=== PATIENT | female | born 2000 | race Two or more races ===

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

== ENCOUNTER 2018-02-23 16:45 | Observation (INO) | payer SELFPAY ==
[~2018-02-23] VITALS: Ht 144.8 cm; Wt 71.7 kg
[2018-02-23] MEDS ORDERED: LACTATED RINGER'S 1,000 ML IV ONE (17:25)
[2018-02-23] MEDS ORDERED: NIFEdipine 10 MG CAP PO ONE (17:30)
[2018-02-23] MEDS: TERBUTALINE SULFATE 1 MG/ML 1ML VIAL SC SCH ×3 (18:07→18:39)
[2018-02-23] MEDS ORDERED: NIFE30TA76 PO (19:08)
== END 2018-02-23 19:50 | disposition home or self-care (01) | DRG 778 ==
LOC: LDRP 16:45
PROVIDERS: ADMIT Specialist; ATTEND Specialist
DX: O60.03 Preterm labor without delivery, third trimester (principal); O26.893 Other specified pregnancy related conditions, third trimester; R51 Headache; O21.2 Late vomiting of pregnancy; Z3A.31 31 weeks gestation of pregnancy
CPT/HCPCS: 59025; 81002; 96360; 96361; 96372; G0378; J3105; 96365; 96366

== ENCOUNTER 2018-03-07 09:10 | Observation (INO) | payer SELFPAY ==
[~2018-03-07 09:10] MED LIST: NIFE30TA76 PO
[2018-03-07] MEDS ORDERED: NIFEdipine 10 MG CAP PO ONE (10:30)
[2018-03-07] MEDS: TERBUTALINE SULFATE 1 MG/ML 1ML VIAL SC SCH (10:44)
[2018-03-07] MEDS ORDERED: BETAMETHASONE ACET (6MG/ML) 5ML VIAL IM ONE (11:30)
== END 2018-03-07 12:00 | disposition home or self-care (01) | DRG 778 ==
LOC: LDRP 09:10 → UNDODISOB 12:00
PROVIDERS: ADMIT Obstetrics & Gynecology; ATTEND Obstetrics & Gynecology
DX: O60.03 Preterm labor without delivery, third trimester (principal); Z3A.33 33 weeks gestation of pregnancy
CPT/HCPCS: 59025; 81002; 96372; G0378; J0702; J3105

== ENCOUNTER 2018-03-08 11:40 | Observation (INO) | payer SELFPAY ==
[2018-03-08] MEDS ORDERED: BETAMETHASONE ACET (6MG/ML) 5ML VIAL IM ONE (12:15)
== END 2018-03-08 13:45 | disposition home or self-care (01) | DRG 778 ==
LOC: LDRP 11:40
PROVIDERS: ADMIT Obstetrics & Gynecology; ATTEND Obstetrics & Gynecology
DX: O60.03 Preterm labor without delivery, third trimester (principal); Z3A.33 33 weeks gestation of pregnancy
CPT/HCPCS: 59025; 76815; 81002; 96372; G0378

== ENCOUNTER 2018-03-16 09:55 | Observation (INO) | payer SELFPAY ==
[2018-03-16] MEDS ORDERED: PREN-96 PO (10:35)
== END 2018-03-16 10:55 | disposition home or self-care (01) | DRG 778 ==
LOC: LDRP 09:55
PROVIDERS: ADMIT Specialist; ATTEND Specialist
DX: O60.03 Preterm labor without delivery, third trimester (principal); O62.9 Abnormality of forces of labor, unspecified; Z3A.34 34 weeks gestation of pregnancy
CPT/HCPCS: 59025; 81002; G0378

== ENCOUNTER 2018-04-18 08:55 | Observation (INO) | payer MEDICAID ==
[~2018-04-18 08:55] MED LIST changes: -NIFE30TA76 PO; +PREN-96 PO
== END 2018-04-18 11:15 | disposition home or self-care (01) | DRG 566 ==
LOC: LDRP 08:55
PROVIDERS: ADMIT Obstetrics & Gynecology; ATTEND Obstetrics & Gynecology
DX: O26.893 Other specified pregnancy related conditions, third trimester (principal); Z3A.39 39 weeks gestation of pregnancy
CPT/HCPCS: 59025; 76805; 81002; G0378

== ENCOUNTER 2018-04-19 15:10 | Observation (INO) | payer MEDICAID | END 2018-04-19 16:10 | disposition home or self-care (01) | DRG 566 | LOC: LDRP 15:10 | PROVIDERS: ADMIT Specialist; ATTEND Specialist | DX: O26.853 Spotting complicating pregnancy, third trimester (principal); Z3A.39 39 weeks gestation of pregnancy | CPT/HCPCS: 59025; 81002; G0378 ==

== ENCOUNTER 2018-04-20 05:41 | Observation (INO) | payer MEDICAID | END 2018-04-20 06:55 | disposition home or self-care (01) | DRG 566 | LOC: LDRP 05:41 | PROVIDERS: ADMIT Obstetrics & Gynecology; ATTEND Obstetrics & Gynecology | DX: O62.9 Abnormality of forces of labor, unspecified (principal); O26.893 Other specified pregnancy related conditions, third trimester; R10.9 Unspecified abdominal pain; M79.605 Pain in left leg; O99.89 Other specified diseases and conditions complicating pregnancy, childbirth and the puerperium; M54.9 Dorsalgia, unspecified; Z3A.39 39 weeks gestation of pregnancy | CPT/HCPCS: 59025; 81002; G0378 ==

== ENCOUNTER 2018-04-21 09:35 | Inpatient (IN) | payer MEDICAID ==
[~2018-04-21] VITALS: Ht 157.5 cm; Wt 79.4 kg
[2018-04-21] MEDS ORDERED: LACTATED RINGER'S 1,000 ML IV SCH ×3 (12:57→15:55)
[2018-04-21] MEDS ORDERED: LACT. RINGERS/OXYTOCIN 20UNITS 1,000 ML IV SCH ×2 (12:57→15:55)
[2018-04-21] MEDS ORDERED: LIDOCAINE 2% (LOCAL ANESTH.) PF 5ml SDV ID ONE (13:00)
[2018-04-21] MEDS ORDERED: DERMOPLAST 60ML BOTTLE TOP PRN (13:00)
[2018-04-21] MEDS ORDERED: PHISODERM TOP SOLN 240ML BTL TOP PRN (13:00)
[2018-04-21] MEDS ORDERED: METHYLERGONOVINE MALEATE 0.2 MG/ML AMP IM PRN (13:00)
[2018-04-21] MEDS ORDERED: NALBUPHINE HCL 10 MG/1ml INJECTION IV PRN (13:00)
[2018-04-21] MEDS ORDERED: WITCH HAZEL-GLYCERIN PAD TOP PRN (13:00)
[2018-04-21 13:41] LABS: Urine Bacteria FEW /hpf (None Seen); Urine Blood 2+ /uL (Negative); Urine Mucus FEW (None Seen); Urine Specific Gravity 1.012 (1.001-1.035); Urine WBC 28 /hpf (0 - 5)
[2018-04-21] MEDS ORDERED: PENICILLIN G POT 5MIL/D5 50ML 50 ML IV ONE ×2 (14:08→14:30)
[2018-04-21 14:21] LABS: Basophils # (auto) 0.1 uL; Basophils % (auto) 0.5 % (0.0-2.0); Eosinophils # (auto) 0 uL; Eosinophils % (auto) 0.4 % (0.0-7.0); Hematocrit 37.1 % (36.0-46.0); Hemoglobin 12.3 g/dL (12.2-16.2); Lymphocytes # (auto) 1.9 uL; Lymphocytes % (auto) 17.3 % (10.0-50.0); Mean Corpuscular Hemoglobin 30.8 pg (28.0-32.0); Mean Corpuscular Hgb Conc. 33.2 g/dL (32.0-36.0); Mean Corpuscular Volume 92.9 fL (80.0-100.0); Monocytes # (auto) 0.7 uL; Monocytes % (auto) 5.9 % (0.0-12.0); Neutrophils # (auto) 8.4 uL; Neutrophils % (auto) 75.9 % (37.0-80.0); Platelet Count (auto) 369 10^3/uL (140-450)
[2018-04-21 14:30] LABS: INR 0.87 (0.9-1.15); Partial Thromboplastin Time 24.3 sec (23.78-33.04); Prothrombin Time 9.4 sec (9.27-12.13)
[2018-04-21 14:45] LABS: Albumin 2.7 g/dL (3.4-5.0); BUN/Creatinine Ratio 8.5; Bilirubin, Total 0.3 mg/dL (0.2-1.0); Calcium 8.6 mg/dL (8.5-10.1); Potassium 4.1 mmol/L (3.5-5.1); Total Protein 7.4 g/dL (6.4-8.2)
[2018-04-21] MEDS ORDERED: TERBUTALINE SULFATE 1 MG/ML 1ML VIAL SC ONE (16:00)
[2018-04-21] MEDS: PENICILLIN G POTASSIUM 2,500,000 UNITS in D5W 5% 50 ML IV SCH ×2 (19:00→23:35)
[2018-04-21] MEDS ORDERED: ePHEDrine SULFATE 50 MG/ML AMP IV ONE ×2 (21:15→22:30)
[2018-04-21] MEDS ORDERED: fentaNYL W ROPIVACAINE 150 ML EPI SCH ×2 (21:15→22:30)
[2018-04-21] MEDS ORDERED: NALOXONE HCL 0.4 MG/ML VIAL IV ONE ×2 (21:15→22:30)
[2018-04-21] MEDS ORDERED: ePHEDrine SULFATE 50 MG/ML AMP ONE (21:28)
[2018-04-21] MEDS ORDERED: NALOXONE HCL 0.4 MG/ML VIAL ONE (21:28)
[2018-04-21] MEDS ORDERED: fentaNYL W ROPIVACAINE 150 ML EPI ONE (21:28)
[2018-04-21] MEDS ORDERED: LIDOCAINE 2% (LOCAL ANESTH.) PF 5ml SDV ONE (22:15)
[2018-04-21] MEDS ORDERED: fentaNYL CITRATE 100 MCG/2 ML VL ONE (22:15)
[2018-04-21] MEDS ORDERED: fentaNYL CITRATE 100 MCG/2 ML VL IV ONE (22:30)
[2018-04-21] MEDS ORDERED: SODIUM CHLORIDE 0.9% 500 ML IV PRN (22:30)
[2018-04-22] MEDS ORDERED: LACT. RINGERS/OXYTOCIN 20UNITS 500 ML IV ONE (02:07)
[2018-04-22 03:06] LABS: RPR Non Reactive (Non Reactive)
[2018-04-22] MEDS: IBUPROFEN 600 MG TAB PO PRN ×3 (03:38→11:01)
[2018-04-22 07:02] VITALS: BP 108/52
[2018-04-22] MEDS ORDERED: TETANUS-DIPTH-ACEL PERTUSSIS 0.5ML SYRG IM ONE (10:00)
[2018-04-22 11:00] VITALS: BP 115/70
[2018-04-22 11:44] VITALS: BP 115/70
[2018-04-22 15:00] VITALS: BP 99/51
[2018-04-22] MEDS: HYDROcodone-ACET 5/325MG TAB PO PRN ×2 (15:26→22:06)
[2018-04-22 19:00] VITALS: BP 99/51
[2018-04-22 22:35] VITALS: BP 99/59
[2018-04-23 03:27] VITALS: BP 94/53
[2018-04-23 06:30] VITALS: BP 97/55
[2018-04-23] MEDS: IBUPROFEN 600 MG TAB PO PRN (07:34)
== END 2018-04-23 10:55 | disposition home or self-care (01) | DRG 560 ==
LOC: LDRP 09:35 → OBSVTOIN 09:35 → LDRP 11:34
PROVIDERS: ADMIT Specialist; ATTEND Specialist
PROC: 10E0XZZ Delivery of Products of Conception, External Approach (ICD-10-PCS; principal; 2018-04-22)
PROC: 3E0R3BZ Introduction of Anesthetic Agent into Spinal Canal, Percutaneous Approach (ICD-10-PCS; 2018-04-22)
PROC: 00HU33Z Insertion of Infusion Device into Spinal Canal, Percutaneous Approach (ICD-10-PCS; 2018-04-22)
PROC: 10907ZC Drainage of Amniotic Fluid, Therapeutic from Products of Conception, Via Natural or Artificial Opening (ICD-10-PCS; 2018-04-22)
DX: O76 Abnormality in fetal heart rate and rhythm complicating labor and delivery (principal); Z37.0 Single live birth; Z3A.39 39 weeks gestation of pregnancy
CPT/HCPCS: 36415; 51702; 59025; 59409; 62282; 71045; 76818; 80053; 81001; 85025; 85610; 85730; 86592; 86850; 86900; 86901; 90472; 90715; 93005; 94762; 96365; 96366; 96372; 96374; 96375; A6257; J2001; J2540; J2590; J3010; J7060

== ENCOUNTER 2020-02-13 11:19 | Observation (INO) | payer MEDICAID | END 2020-02-13 12:50 | disposition home or self-care (01) | DRG 566 | LOC: LDRP 11:19 | PROVIDERS: ADMIT Specialist; ATTEND Specialist | DX: O42.92 Full-term premature rupture of membranes, unspecified as to length of time between rupture and onset of labor (principal); R10.9 Unspecified abdominal pain; Z3A.37 37 weeks gestation of pregnancy | CPT/HCPCS: 59025; 81002; 84112; G0378; Q0114 ==

== ENCOUNTER 2020-02-22 09:35 | Observation (INO) | payer MEDICAID | END 2020-02-22 10:50 | disposition home or self-care (01) | DRG 566 | LOC: LDRP 09:35 | PROVIDERS: ADMIT Specialist; ATTEND Specialist | DX: O26.893 Other specified pregnancy related conditions, third trimester (principal); R10.31 Right lower quadrant pain; Z3A.38 38 weeks gestation of pregnancy | CPT/HCPCS: 59025; 81002; G0378 ==

== ENCOUNTER 2020-02-25 17:54 | Observation (INO) | payer MEDICAID ==
[~2020-02-25] VITALS: Ht 160 cm; Wt 87.5 kg
== END 2020-02-25 20:28 | disposition home or self-care (01) | DRG 566 ==
LOC: LDRP 17:54
PROVIDERS: ADMIT Obstetrics & Gynecology; ATTEND Obstetrics & Gynecology
DX: O46.93 Antepartum hemorrhage, unspecified, third trimester (principal); O62.9 Abnormality of forces of labor, unspecified; Z3A.39 39 weeks gestation of pregnancy
CPT/HCPCS: 59025; 76818; 81002; G0378

== ENCOUNTER 2020-02-26 00:12 | Inpatient (IN) | payer MEDICAID ==
[~2020-02-26] VITALS: Ht 149.9 cm; Wt 87.5 kg
[2020-02-26] MEDS ORDERED: BUTORPHANOL TARTRATE 2 MG/1 ML VIAL IM ONE (00:45)
[2020-02-26] MEDS ORDERED: PROMETHAZINE HCL 6.25 MG/5 ML ORAL SYRUP PO PRN (00:45)
[2020-02-26] MEDS ORDERED: LACT. RINGERS/OXYTOCIN 20UNITS 1,000 ML IV SCH ×2 (03:49→16:40)
[2020-02-26] MEDS ORDERED: LIDOCAINE 2%HCL (LOCAL ANESTH.) INJ 20ML MDV ID ONE (04:00)
[2020-02-26] MEDS ORDERED: PHISODERM TOP SOLN 240ML BTL TOP PRN (04:00)
[2020-02-26] MEDS ORDERED: DERMOPLAST 60ML BOTTLE TOP PRN (04:00)
[2020-02-26] MEDS ORDERED: CARBOPROST TROMETHAMINE 250 MCG/1ML VIAL IM PRN (04:00)
[2020-02-26] MEDS ORDERED: PENICILLIN G POT 5MIL/D5 50ML 50 ML IV ONE (04:00)
[2020-02-26] MEDS ORDERED: METHYLERGONOVINE MALEATE 0.2 MG/ML AMP IM PRN (04:00)
[2020-02-26] MEDS ORDERED: WITCH HAZEL-GLYCERIN PAD TOP PRN (04:00)
[2020-02-26 04:35] LABS: Basophils # (auto) 0 10 ^3/uL (0-0.2); Basophils % (auto) 0.3 % (0.0-2.0); Eosinophils # (auto) 0 10 ^3/uL (0-0.8); Eosinophils % (auto) 0.1 % (0.0-7.0); Hematocrit 38.1 % (36.0-46.0); Hemoglobin 12.6 g/dL (12.2-16.2); Lymphocytes # (auto) 1.3 10 ^3/uL (0.4-5.4); Lymphocytes % (auto) 13.3 % (10.0-50.0); Mean Corpuscular Hemoglobin 30.9 pg (28.0-32.0); Mean Corpuscular Hgb Conc. 33.1 g/dL (32.0-36.0); Mean Corpuscular Volume 93.2 fL (80.0-100.0); Monocytes # (auto) 0.4 10 ^3/uL (0-1.3); Monocytes % (auto) 4.5 % (0.0-12.0); Neutrophils # (auto) 7.8 10 ^3/uL (1.6-8.6); Neutrophils % (auto) 81.8 % (37.0-80.0); Nucleated Red Blood Cells % 0.1 %; Platelet Count (auto) 358 10^3/uL (140-450); Red Blood Cells 4.09 10^6/uL (4.0-5.20); Red Cell Distribution Width 15.2 % (11.8-14.3); White Blood Cell 9.5 10^3/uL (4.4-10.8)
[2020-02-26 04:50] LABS: INR 0.92 (0.9-1.15); Partial Thromboplastin Time 24.7 sec (23.64-32.05)
[2020-02-26 04:53] LABS: Calcium 9.2 mg/dL (8.5-10.1)
[2020-02-26 04:56] LABS: BUN/Creatinine Ratio 13.3; Bilirubin, Total 0.2 mg/dL (0.2-1.0); Total Protein 7.8 g/dL (6.4-8.2)
[2020-02-26] MEDS: LACTATED RINGER'S 1,000 ML IV SCH ×2 (05:00→06:43)
[2020-02-26] MEDS ORDERED: BUTORPHANOL TARTRATE 2 MG/1 ML VIAL IV PRN (05:00)
[2020-02-26] MEDS ORDERED: ePHEDrine SULFATE 50 MG/ML AMP IV ONE (05:15)
[2020-02-26] MEDS ORDERED: fentaNYL 200mCg/100ml W ROPIVA 100 ML EPI SCH (05:15)
[2020-02-26] MEDS ORDERED: PROMETHAZINE HCL 25 MG/ML 1ML IM PRN (06:15)
[2020-02-26] MEDS ORDERED: PROMETHAZINE HCL 25 MG/ML 1ML ONE (06:21)
[2020-02-26] MEDS: PROMETHAZINE HCL 25 MG/ML 1ML IV PRN ×2 (06:26→10:36)
[2020-02-26 07:31] LABS: Urine Bacteria NONE SEEN /hpf (None Seen); Urine Blood 1+ /uL (Negative); Urine Mucus FEW (None Seen); Urine Specific Gravity 1.037 (1.001-1.035); Urine WBC 3 /hpf (0 - 5)
[2020-02-26 07:46] LABS: Alcohol, Urine < 3.0 mg/dL (0-10); Amphetamine Screen, Urine NEGATIVE (NEGATIVE); Barbiturate Scree,Urine NEGATIVE (NEGATIVE); Benzodiazephine Screen, Urine NEGATIVE (NEGATIVE); Cannabinoid Screen, Urine NEGATIVE (NEGATIVE); Cocaine Screen, Urine NEGATIVE (NEGATIVE); Opiate Scree,Urine NEGATIVE (NEGATIVE); Phencyclidine Screen, Urine NEGATIVE (NEGATIVE)
[2020-02-26] MEDS ORDERED: PENICILLIN G POTASSIUM 2,500,000 UNITS in D5W 5% 50 ML IV SCH (08:00)
[2020-02-26] MEDS: PENICILLIN G POTASSIUM 2,500,000 UNITS in D5W 5% 50 ML IV SCH ×2 (09:07→12:45)
--- NOTE | 2020-02-26 15:25 | NUR ---
Teaching: Reviewed information in [facility] booklet with patient. Discussed benefits of and risks associated with not . Discussed different positions, proper latch, feeding cues, and baby-led . Provided information of medication side effects related to . All questions and concerns addressed at this time. Patient verbalized understanding of information.
[2020-02-26] MEDS ORDERED: LACT. RINGERS/OXYTOCIN 20UNITS 500 ML IV ONE (15:40)
[2020-02-26] MEDS ORDERED: ONDANSETRON HCL 4 MG/2 ML VIAL IV PRN (15:45)
[2020-02-26] MEDS ORDERED: ACETAMINOPHEN 325 MG TAB PO PRN (15:45)
[2020-02-26] MEDS: IBUPROFEN 600 MG TAB PO PRN (16:10)
--- NOTE | 2020-02-26 17:10 | NUR ---
Ambulation: Patient OOB with standby assistance by RN. Patient ambulated to bathroom with steady gait. Patient able to void without difficulty. [facility] teaching provided with returned demonstration by patient. Clean gown provided and bed linen changed. Patient ambulated back to bed with steady gait and no distress noted.
[2020-02-26] MEDS ORDERED: HYDROcodone-ACET 10/325MG TAB PO ONE (17:45)
--- NOTE | 2020-02-26 17:45 | NUR ---
Call placed to [facility] given including pt c/o COATS; VS reviewed; order received to [place] 10/325 x 1 dose; order will be carried out.
[2020-02-26 18:30] VITALS: BP 124/72
[2020-02-26] MEDS ORDERED: TETANUS-DIPTH-ACEL PERTUSSIS 0.5ML SYR Tdap IM ONE (20:54)
[2020-02-26 22:51] VITALS: BP 102/67
[2020-02-27] MEDS: IBUPROFEN 600 MG TAB PO PRN ×3 (00:54→15:28)
[2020-02-27 02:58] VITALS: BP 98/53
[2020-02-27 06:29] VITALS: BP 112/68
[2020-02-27 07:01] VITALS: BP 112/68
--- NOTE | 2020-02-27 07:09 | NUR ---
Patient states IV is causing pain, flushed without difficulty. Patient request to have IV removed per policy. Cath intact, patient tolerated well and pressure dressing placed to site. Signed: 02/27/20 at 711 by SOLOMON HAMLIN <Co-Signature Required> Co-Signed: 02/27/20 at 711 by DEANNE VALDEZ RN Addendum: 02/27/20 at 713 by SOLOMON HAMLIN Amended: Links added.
[2020-02-27 07:10] LABS: RPR Non Reactive (Non Reactive)
[2020-02-27] MEDS ORDERED: TETANUS-DIPTH-ACEL PERTUSSIS 0.5ML SYR Tdap IM ONE (08:30)
[2020-02-27] MEDS ORDERED: MEASLES, MUMPS & RUBELLA VAC(MMRII) 0.5ML SC ONE (08:30)
--- NOTE | 2020-02-27 09:30 | NUR ---
Artificial Nipple Education: Encouraged mother to refrain from using artificial nipples which include a pacifier. Discussed the risk of artificial nipple use and its effect on effective . Mother verbalized understanding of information and agreed to refrain from using artificial nipples. Educated mother on feeding cues and proper latching of onto the nipple. Signed: 02/27/20 at 1223 by SOLOMON HAMLIN <Co-Signature Required> Co-Signed: 02/27/20 at 1223 by DEANNE VALDEZ RN
[2020-02-27] MEDS ORDERED: DOCUSATE CALCIUM 240 MG CAP PO SCH (10:00)
[2020-02-27 10:56] VITALS: BP 105/65
[2020-02-27 15:20] VITALS: BP 102/70
--- NOTE | 2020-02-27 17:00 | NUR ---
Discharge: Discharge instructions given as ordered. All discharge paperwork reviewed with patient and significant other. Pt encouraged to follow up with Dr Hilario at [facility]. Call for appointment tomorrow. All questions and concerns addressed. Patient verbalized understanding. Medication reconciliation completed and copy given to patient. All required/requested vaccines given and copies of vaccinations given to patient. Patient encouraged to prepare to depart unit.
--- NOTE | 2020-02-27 17:23 | NUR ---
Discharge: Patient ambulated to car to vehicle with all personal belongings, and discharge instructions, accompanied by staff and family member. No distress noted at time of departure, no adverse changes in status since initial assessment.
== END 2020-02-27 17:25 | disposition home or self-care (01) | DRG 560 ==
LOC: LDRP 00:12 → OBSVTOIN 03:50
PROVIDERS: ADMIT Obstetrics & Gynecology; ATTEND Obstetrics & Gynecology
PROC: 10E0XZZ Delivery of Products of Conception, External Approach (ICD-10-PCS; principal; 2020-02-26)
PROC: 0HQ9XZZ Repair Perineum Skin, External Approach (ICD-10-PCS; 2020-02-26)
PROC: 3E0R3BZ Introduction of Anesthetic Agent into Spinal Canal, Percutaneous Approach (ICD-10-PCS; 2020-02-26)
PROC: 00HU33Z Insertion of Infusion Device into Spinal Canal, Percutaneous Approach (ICD-10-PCS; 2020-02-26)
DX: O70.0 First degree perineal laceration during delivery (principal); Z11.59 Encounter for screening for other viral diseases; Z37.0 Single live birth; Z3A.39 39 weeks gestation of pregnancy
CPT/HCPCS: 36415; 51702; 59025; 59409; 62282; 80053; 80307; 81001; 81002; 84112; 85025; 85610; 85730; 86592; 86850; 86900; 86901; 90715; 96365; 96366; 96372; 96374; G0378; J2540; J2590; J7060

== ENCOUNTER 2025-05-24 08:40 | Emergency (ER) | payer MEDICAID ==
[~2025-05-24] VITALS: Ht 154.9 cm; Wt 88.8 kg
--- NOTE | 2025-05-24 08:55 | ED.PDOC ---
HPI (NEURO) HPI Comments A 24 YEAR OLD FEMALE PRESENTS TO THE ED WITH COMPLAINT OF HEADACHE. PATIENT STATES SHE HAS BEEN EXPERIENCING A HEADACHE OFF AND ON FOR THE PAST 3 WEEKS. PATIENT DENIES VISION CHANGES, SLURRED SPEECH, ONE-SIDED WEAKNESS, FACIAL DROOP, FEVER, CHILLS, SHORTNESS OF BREATH, CHEST PAIN, ABDOMINAL PAIN, NAUSEA, VOMITING, OR OTHER COMPLAINTS. NO OTHER SYMPTOMS OR MODIFYING FACTORS AT THIS TIME. PATIENT IS ALERT, ORIENTED X 4, AND HAS STEADY GAIT. Chief Complaint: Headache Time Seen by MD: 08:45 Primary Care Provider: [facility] Reviewed Notes: Nurses Notes, Medications, Allergies Mode of Arrival: Ambulatory Severity: Moderate Headache Severity: Moderate Duration: Since onset Prehospital treatment: None Headache Quality: Aching Headache Location: Generalized Onset: At rest Symptoms: Other (HEADACHE) History of: None Modifying factors: Nothing Associated Signs and Symptoms: Headache Past Medical History PAST MEDICAL HISTORY: Denies Surgical History: Denies all surgeries BRAIN SURGEON History: No Pertinent BRAIN SURGEON History Family History Family History: Reviewed,noncontributory to illness Social History Smoker: Non-Smoker Alcohol: Denies ETOH Use Drugs: Denies Drug Use Lives In: Home Constitutional: denies: chills, diaphoresis, fatigue, fever, malaise, sweats, weakness, others EENTM: denies: blurred vision, double vision, ear bleeding, ear discharge, ear drainage, ear pain, ear ringing, eye pain, eye redness, hearing loss, mouth pain, mouth swelling, nasal discharge, nose bleeding, nose congestion, nose pain, photophobia, tearing, throat pain, throat swelling, voice changes, others Respiratory: denies: cough, hemoptysis, orthopnea, SOB at rest, shortness of breath, SOB with excertion, stridor, wheezing, others Cardiovascular: denies: chest pain, dizzy spells, diaphoresis, Dyspnea on exertion, edema, irregular heart beat, left arm pain, lightheadedness, palpitations, PND, syncope, others Gastrointestinal: denies: abdomen distended, abdominal pain, blood streaked bowels, constipated, diarrhea, dysphagia, difficulty swallowing, hematemesis, melena, nausea, poor appetite, poor fluid intake, rectal bleeding, rectal pain, vomiting, others Genitourinary: denies: abnormal vagina bleeding, burning, dyspareunia, dysuria, flank pain, frequency, hematuria, incontinence, pain, , vagina discharge, urgency, others Neurological: reports: headache; denies: dizziness, fainting, left sided numbness, left sided weakness, numbness, paresthesia, pre-existing deficit, right sided numbness, right sided weakness, seizure, speech problems, tingling, tremors, weakness, others Musculoskeletal: denies: back pain, gout, joint pain, joint swelling, muscle pain, muscle stiffness, neck pain, others Integumetry: denies: bruises, change in color, change in hair/nails, dryness, laceration, lesions, lumps, rash, wounds, others Allergic/Immunocompromised: denies: Difficulty Healing, Frequent Infections, Hives, Itching, others Hematologic/Lymphatic: denies: anemia, blood clots, easy bleeding, easy bruising, swollen glands, others Endocrine: denies: excessive hunger, excessive sweating, excessive thirst, excessive urination, flushing, intolerance to cold, intolerance to heat, unexplained weight gain, unexplained weight loss, others Psychiatric: denies: anxiety, bipolar disorder, depression, hopeless, panic disorder, schizophrenia, sleepless, suicidal, others All Other Systems: Reviewed and Negative Physical Exam General Appearance: No Apparent Distress, Obese HEENT: Normal ENT Inspection, PERRL/EOMI, Pharynx Normal, TMs Normal Neck: Full Range of Motion, Non-Tender, Normal, Normal Inspection Respiratory: Chest Non-Tender, Lungs Clear, No Accessory Muscle Use, No Respiratory Distress, Normal Breath Sounds Cardiovascular: No Edema, No JVD, No Murmur, No Gallop, Normal Peripheral Pulses, Regular Rate/Rhythm Breast Exam: Deferred Gastrointestinal: No Organomegaly, Non Tender, No Pulsatile Mass, Normal Bowel Sounds, Soft Genitalia: Deferred Pelvic: Deferred Rectal: Deferred Extremities: No calf tenderness, Normal capillary refill, Normal inspection, Normal range of motion, Non-tender, No pedal edema Neurologic: Alert, escalator constructor II-XII nml as Tested, No Motor Deficits, Normal Affect, Normal Mood, No Sensory Deficits Cerebellar Function: Normal Reflexes: Normal Skin: Dry, Normal Color, Warm Peripheral Pulses: 2+ carotid (R), 2+ carotid (L) Lymphatic: No Adenopathy Was a procedure done? Was a procedure done?: No Differential Diagnosis (SZ) Seizure: N/A General Weakness: N/A Headache: Cluster, Migraine, Epidural Hemorrhage, Intracerebral Hemorrhage, Subdural Hemorrhage, Trigeminal Neuralgia X-Ray, Labs, Meds, VS Vital Signs Date Time Temp Pulse Resp B/P (MAP) Pulse Ox O2 Delivery O2 Flow Rate FiO2 05/24/25 08:42 97.8 70 18 102/67 96 97.8 CLINICAL INFORMATION: 24 years old, Female; LEFT SIDE HEADACHE X 3 WEEKS. TECHNIQUE: Axial imaging was obtained through the brain without contrast. Coronal and sagittal reformatted images were obtained, reviewed, and stored. Images were reviewed in brain and bone windows. All CT scans at this medical facility are performed using dose modulation techniques as appropriate to a performed exam including the following: Automated exposure control was utilized; adjustment of the MA and/or KV according to patient size; and use of iterative reconstruction technique. CTDIvol = 59.4 mGy DLP = 1051.66 mGy-cm COMPARISON: None FINDINGS: There is no acute intracranial hemorrhage. No mass effect or midline shift. The ventricles and sulci are within normal limits in size for age. Basal cisterns are patent. The calvarium is unremarkable. Paranasal sinuses and mastoid air cells are clear. IMPRESSION: No CT evidence of acute intracranial abnormality. ATED BY: JOSUE MOSES DO DICTATED DATE/TIME: 05/24/25937 SIGNED BY: JOSUE MOSES DO SIGNED DATE/TIME: 05/24/25937 CC: X-Ray, Labs, Meds, VS Comment EXTERNAL MEDICAL RECORDS REVIEWED: [NONE] INDEPENDENT HISTORIANS: [NONE] SOCIAL DETERMINANTS OF HEALTH: [NONE] LABS ORDERED: NONE REVIEWED AND INTERPRETED RESULTS: NONE IMAGING ORDERED: CT BRAIN TREATMENTS ORDERED: PROCEDURES PERFORMED: NONE CRITICAL CARE TIME: NONE I HAVE DISCUSSED THE PATIENT WITH THE ATTENDING PHYSICIAN, DR. AZAR HE AGREES WITH THE PATIENT'S PLAN OF CARE AND DISPOSITION. BASED ON HISTORY OF PRESENT ILLNESS, AND PHYSICAL EXAM, PATIENT WILL BE DISCHARGED HOME. DISCUSSED PLAN FOR DISCHARGE HOME WITH RX [IMITREX]. MEDICATION WARNINGS GIVEN. SHARED DECISION MAKING: DISCUSSED WITH PATIENT THAT THEIR WORKUP WAS NORMAL. PATIENT INSTRUCTED TO FOLLOW UP WITH PRIMARY CARE PROVIDER IN 1-2 DAYS FOR RE- EVALUATION OF SYMPTOMS. PATIENT VERBALIZES UNDERSTANDING TO RETURN TO ED FOR NEW OR WORSENING SYMPTOMS OR IF FOLLOW UP WITH PCP CANNOT BE OBTAINED. PATIENT FEELS COMFORTABLE GOING HOME AT THIS TIME. ALL QUESTIONS ADDRESSED AT TIME OF DISCHARGE. Images Reviewed?: Images reviewed and evaluated by me Time of 1ST Reevaluation: 10:07 Reevaluation 1ST: Improved Patient Education/Counseling: Diagnosis, Treatment, Need For Follow Up Family Education/Counseling: Diagnosis, Treatment, Need For Follow Up Medical Screening: No EMC Exist At This Time Departure 1 Departure Time of Disposition: 10:07 Impression: Primary Impression: Migraine headache Qualified Codes: G43.909 - Migraine, unspecified, not intractable, without status migrainosus Disposition: HOME / SELF CARE / HOMELESS Condition: Stable Additional Instructions: FOLLOW-UP WITH PCP IN 1 TO 2 DAYS. TAKE MEDICATIONS PRESCRIBED. RETURN TO ED FOR ANY NEW OR WORSENING SYMPTOMS. e-Prescriptions Sumatriptan Succinate (Imitrex) 50 Mg Tab 1 TAB PO BID, #20 TAB Prov: DAYAN GUTIERREZ 05/24/25 Discharged With: Self Critical Care Note Critical Care Time?: No Stability Stability form required: No I personally scribed for DAYAN GUTIERREZ ([email or web address]) on 05/24/25 at 08:55. Electronically submitted by Jose Enrique Santos ([email or web address]). I personally scribed for DAYAN GUTIERREZ ([email or web address]) on 05/24/25 at 09:57. Electronically submitted by Jose Enrique Santos ([email or web address]). DAYAN GUTIERREZ May 24, 2025 08:55
--- NOTE | 2025-05-24 09:40 | DVH ---
CLINICAL INFORMATION: 24 years old, Female; LEFT SIDE HEADACHE X 3 WEEKS. TECHNIQUE: Axial imaging was obtained through the brain without contrast. Coronal and sagittal reform atted images were obtained, reviewed, and stored. Images were reviewed in brain and bone windows. Al l CT scans at this medical facility are performed using dose modulation techniques as appropriate to a performed exam including the following: Automated exposure control was utilized; adjustment of the MA and/or KV according to patient size; and use of iterative reconstruction technique. CTDIvol = 59.4 mGy DLP = 1051.66 mGy-cm COMPARISON: None FINDINGS: There is no acute intracranial hemorrhage. No mass effect or midline shift. The ventricles and sulci are within normal limits in size for age. Basal cisterns are patent. The calvarium is unre markable. Paranasal sinuses and mastoid air cells are clear. IMPRESSION: No CT evidence of acute intracranial abnormality.
[2025-05-24] MEDS ORDERED: SUMA50TA2 PO (10:07)
[2025-05-24 10:13] VITALS: BP 109/65; PULSE 77; RESP 16; TEMP 98.2; O2SAT 98
== END 2025-05-24 10:15 | disposition home or self-care (01) ==
LOC: ER 08:40
DX: G43.909 Migraine, unspecified, not intractable, without status migrainosus (principal); Z79.899 Other long term (current) drug therapy
CPT/HCPCS: 70450